=== PATIENT | male | born 1955 | race Caucasian/White ===

== ENCOUNTER 2017-08-11 09:55 | Day surgery (SDC) | payer BC ==
[2017-08-11] MEDS ORDERED: Sodium Chloride 0.9% 10 ML Syringe FLUSH PRN (10:00)
[2017-08-11] MEDS ORDERED: Lactated Ringers 1,000 ML IV SCH (10:00)
[2017-08-11] MEDS ORDERED: fentaNYL 100 MCG/2 ML SDV ONE ×2 (10:43→11:46)
[2017-08-11] MEDS ORDERED: Midazolam 1 MG/ML 2 ML SDV ONE ×2 (10:43→11:46)
[2017-08-11] MEDS ORDERED: Propofol 200 MG/20 ML SDV ONE ×2 (10:44→11:46)
[2017-08-11] MEDS ORDERED: 50% Dextrose in Water 50 ML Syringe IVPUSH ONE (11:23)
--- NOTE | 2017-08-11 11:40 | PCM.PN ---
- General Info Date of Service: 08/11/17 - Review of Systems Systems Review Comment:: 62-year-old male referred by Jarad Pace for EGD and colonoscopy. His recent history and physical is reviewed and there is no significant changes noted from that time. He is medically stable to proceed with monitored anesthesia. I have discussed the proposed procedures with the patient. He understands indications options and risks and agrees to proceed. - Patient Data Vitals - Most Recent: Last Vital Signs Temp 98.0 F 08/11/17 11:11 Pulse 70 08/11/17 11:11 Resp 18 08/11/17 11:11 BP 127/52 L 08/11/17 11:11 Pulse Ox 95 08/11/17 11:11 Weight - Most Recent: 108.862 kg Lab Results Last 24 Hours: Laboratory Results - last 24 hr 08/11/17 Range/Units 11:20 POC Glucose 38 L* (65-110) mg/dl Med Orders - Current: Current Medications Lactated Ringer's (Ringers, Lactated) 1,000 mls @ 70 mls/hr IV ASDIRECTED SHIVAM Last Admin: 08/11/17 11:32 Dose: 70 mls/hr Sodium Chloride (Saline Flush) 10 ml FLUSH ASDIRECTED PRN PRN Reason: Keep Vein Open Discontinued Medications Dextrose/Water (Dextrose 50% In Water) 25 ml IVPUSH ONETIME ONE Stop: 08/11/17 11:24 Last Admin: 08/11/17 11:32 Dose: 25 ml Fentanyl (Sublimaze) Confirm Administered Dose 100 mcg .ROUTE .STK-MED ONE Stop: 08/11/17 10:44 Midazolam HCl (Versed 1 Mg/Ml) Confirm Administered Dose 2 mg .ROUTE .STK-MED ONE Stop: 08/11/17 10:44 Propofol (Diprivan 20 Ml) Confirm Administered Dose 400 mg .ROUTE .STK-MED ONE Stop: 08/11/17 10:45 - Problem List Review Problem List Initiated/Reviewed/Updated: Yes - Assessment Assessment:: GERD History of colon polyps - Plan Plan:: EGD and colonoscopy
[2017-08-11] MEDS ORDERED: Lidocaine 2% 5 ML SDV ONE (11:46)
--- NOTE | 2017-08-11 12:47 | PCM.OPNOTE ---
- General Post-Op/Procedure Note Date of Surgery/Procedure: 08/11/17 Operative Procedure(s): EGD with biopsy and colonoscopy Findings: Mild inflammation at the GE junction Small gastric polyps Moderate sigmoid diverticulosis Pre Op Diagnosis: GERD. History of colon polyps Post-Op Diagnosis: Reflux esophagitis. Gastric polyps. Diverticulosis of the colon Anesthesia Technique: MAC Primary Surgeon: Aravind Luna Pathology: Biopsies of gastric antrum Biopsies of gastric polyps Biopsies of GE junction Output, Urine Amount: 0 EBL in mLs: 3 Complications: None Condition: Good Free Text/Narrative:: Intake & Output 08/10/17 08/11/17 08/11/17 22:59 06:59 14:59 Intake Total 700 Balance 700
--- NOTE | 2017-08-11 13:17 | OR ---
Date of Procedure: 08/11/2017 PREOPERATIVE DIAGNOSES: Gastroesophageal reflux disease, history of colon polyps. POSTOPERATIVE DIAGNOSES: Reflux esophagitis, gastric polyps, sigmoid diverticulosis. OPERATION PERFORMED: Esophagogastroduodenoscopy with biopsy and colonoscopy. INDICATIONS FOR SURGERY: This 62-year-old male has a history of GERD symptoms. He also has a history of colon polyps and comes for surveillance colonoscopy. FINDINGS: On upper endoscopy, the patient has a mild degree of inflammation at the GE junction with slight irregularity of the Z-line. This was 40 cm from the incisors. The remainder of the esophagus appears normal. The patient's stomach appears normal with the exception of a few small scattered benign-appearing polyps. No ulcers or other inflammation seen. The duodenum also appears normal. On colonoscopy, the patient has a [id number] degree of diverticulosis, but the remainder of the colon appears normal. No polyps were seen. DESCRIPTION OF PROCEDURE: The patient was taken to the operating room. He was given intravenous sedation and his throat was topically anesthetized. The esophagus was intubated with the Olympus gastroscope. This was carefully advanced down through the esophagus, stomach, and into the duodenum where examination was carried out to the 3rd portion. After carefully examining the duodenum, the scope was withdrawn back into the stomach. Biopsies of the antrum were taken to rule out H. pylori. Full examination of the stomach including retroflexed examination of the fundus was performed. Multiple small polyps were biopsied to assure that they were benign. The GE junction was then carefully examined and biopsies were taken here as well. The esophagus was then re- examined as the scope was withdrawn. Attention was turned to colonoscopy. Digital rectal exam was performed, showing no rectal masses. The Olympus colonoscope was inserted into the rectum. Retroflexed examination of the rectal canal was performed. The scope was then carefully advanced under direct visualization through the entire length of the colon until the cecum was reached. Cecal acquisition was confirmed by noting the normal internal cecal anatomy including the appendiceal orifice and ileocecal valve. The light was also noted to transilluminate the abdominal wall in the right lower quadrant. After examining the cecum, the scope was slowly withdrawn sequentially re- examining the colonic segments until the entire colon and rectum had been fully examined. The scope was removed and the patient was taken from the operating room in satisfactory condition. ESTIMATED BLOOD LOSS: 3 mL. COMPLICATIONS: None. PROGNOSIS: Good. LOBO Luna MD /[id number]
== END 2017-08-11 14:42 | disposition home or self-care (01) ==
LOC: LL.SDS 09:55
PROVIDERS: ATTEND Surgery
DX: Z12.11 Encounter for screening for malignant neoplasm of colon (principal); K21.0 Gastro-esophageal reflux disease with esophagitis; K57.30 Diverticulosis of large intestine without perforation or abscess without bleeding; K31.7 Polyp of stomach and duodenum; I11.0 Hypertensive heart disease with heart failure; I50.22 Chronic systolic (congestive) heart failure; I25.10 Atherosclerotic heart disease of native coronary artery without angina pectoris; E11.9 Type 2 diabetes mellitus without complications; Z95.1 Presence of aortocoronary bypass graft; Z86.010 Personal history of colon polyps; Z79.4 Long term (current) use of insulin; Z79.899 Other long term (current) drug therapy; Z98.890 Other specified postprocedural states; Z88.8 Allergy status to other drugs, medicaments and biological substances
CPT/HCPCS: 43239; 45378; 82962; J2250; J2704; J3010; J7120; J7060

== ENCOUNTER 2018-11-18 13:05 | Emergency (ER) | payer BC ==
--- NOTE | 2018-11-18 14:24 | EDM.PDOC ---
ED HPI GENERAL MEDICAL PROBLEM - General Chief Complaint: General Stated Complaint: Abnormal labs Time Seen by Provider: 11/18/18 13:18 Source of Information: Reports: Patient History Limitations: Reports: No Limitations - History of Present Illness INITIAL COMMENTS - FREE TEXT/NARRATIVE: Patient referred to the ER by [facility] () to get BUN/Cr recheck due to previously high lab result obtained by [facility] provider. Results high and reported to Nephrology today. Patient presented self to ER but is not happy to have to come here. 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 Patient reports slowly dwindling renal function over the past several years, likely due to hyperglycemia/IDDM. - Related Data Allergies Allergy/AdvReac Type Severity Reaction Status Date / Time atorvastatin calcium Allergy Muscle Verified 11/18/18 13:52 [From Lipitor] Weakness rosuvastatin calcium Allergy Muscle Verified 11/18/18 13:52 [From Crestor] Weakness simvastatin [From Zocor] Allergy UNKNOWN Verified 11/18/18 13:52 Home Meds: Home Meds Acetaminophen 650 mg PO Q4HR PRN MDD 4,000 mg in 24 hours 08/11/17 [History] Aspirin/Calcium Carbonate/Mag [Aspirin Buffered] 325 mg PO DAILY 08/11/17 [ History] Carvedilol 25 mg PO BID 08/11/17 [History] Cholecalciferol (Vitamin D3) [Vitamin D3] 800 unit PO DAILY 08/11/17 [History] Clopidogrel Bisulfate [Clopidogrel] 75 mg PO DAILY 08/11/17 [History] Fenofibrate Nanocrystallized [Fenofibrate] 145 mg PO DAILY 08/11/17 [History] Finasteride 5 mg PO DAILY 08/11/17 [History] Fish Oil/Matthews-3 Fatty Acids [Fish Oil 1,000 MG] 1 gm PO DAILY 08/11/17 [History ] Insulin Aspart [NovoLOG] 2 unit SUBCUT ASDIRECTED PRN 08/11/17 [History] Insulin Glarg,Human.Rec.Analog [Lantus Solostar] 51 unit SUBCUT BID 08/11/17 [ History] Insuln Asp Prot/Insulin Aspart [NovoLOG Mix 70-30] 30 unit SUBCUT BIDMEALS 08/11 [History] Isosorbide Mononitrate [Isosorbide Mononitrate ER] 120 mg PO DAILY 08/11/17 [ History] Multivitamins [Tab-A-Arely] 1 tab PO DAILY 08/11/17 [History] Niacin [Niacin ER] 500 mg PO BEDTIME 08/11/17 [History] Nitroglycerin [Nitrostat] 0.4 mg SL ASDIRECTED PRN 08/11/17 [History] Omeprazole 20 mg PO DAILY 08/11/17 [History] Sacubitril/Valsartan [Entresto 97 mg-103 mg Tablet] 1 tab PO BID 08/11/17 [ History] Tamsulosin [Flomax] 0.4 mg PO DAILY 08/11/17 [History] amLODIPine [Norvasc] 5 mg PO DAILY 08/11/17 [History] Pravastatin Sodium 20 mg PO BEDTIME 11/18/18 [History] Ubidecarenone [Co Q-10] 100 mg PO DAILY #30 capsule 11/18/18 [Rx] Past Medical History HEENT History: Reports: Cataract, Impaired Vision Other HEENT History: wears glasses Cardiovascular History: Reports: Bypass, High Cholesterol, Hypertension, Pacemaker, Stents Respiratory History: Reports: COPD Gastrointestinal History: Reports: Colon Polyp, GERD Genitourinary History: Reports: None Musculoskeletal History: Reports: Arthritis, Fracture, Gout Neurological History: Reports: None Psychiatric History: Reports: None Endocrine/Metabolic History: Reports: IDDM, Obesity/BMI 30+ Hematologic History: Reports: None Immunologic History: Reports: None Oncologic (Cancer) History: Reports: None Dermatologic History: Reports: None - Past Surgical History HEENT Surgical History: Reports: Oral Surgery Other HEENT Surgeries/Procedures: wisdom teeth removal GI Surgical History: Reports: Colonoscopy, EGD, Polypectomy Musculoskeletal Surgical History: Reports: Arthroscopic Knee, Knee Replacement Social & Family History - Caffeine Use Caffeine Use: Reports: Coffee - Living Situation & Occupation Living situation: Reports: Single Occupation: Employed ED ROS GENERAL - Review of Systems Review Of Systems: ROS reveals no pertinent complaints other than HPI. ED EXAM, GENERAL - Physical Exam Exam: See Below Exam Limited By: No Limitations General Appearance: Alert, WD/WN, No Apparent Distress, Obese Eye Exam: Bilateral Eye: EOMI, PERRL Ears: Hearing Grossly Normal Nose: No: Nasal Deformity, Nasal Swelling, Nasal Drainage Throat/Mouth: Normal Lips, Normal Voice, No Airway Compromise Head: Atraumatic, Normocephalic Neck: Supple Respiratory/Chest: No Respiratory Distress, Lungs Clear, Normal Breath Sounds, No Accessory Muscle Use Cardiovascular: Regular Rate, Rhythm, No Murmur GI/Abdominal: Soft, Non-Tender Extremities: Normal Inspection, Normal Capillary Refill Neurological: Alert, Oriented, Normal Cognition, Normal Gait Psychiatric: Normal Affect, Normal Mood Skin Exam: Warm, Dry, Intact, Normal Color Course - Vital Signs Last Recorded V/S: Last Vital Signs Temp 36.8 C 11/18/18 13:15 Pulse 61 11/18/18 13:15 Resp 20 11/18/18 13:15 BP 126/66 11/18/18 13:15 Pulse Ox 96 11/18/18 13:15 - Orders/Labs/Meds Labs: Laboratory Tests 11/18/18 11/18/18 Range/Units 13:38 13:38 WBC 6.1 (4.0-10.2) K/uL RBC 3.47 L (4.33-5.41) M/uL Hgb 10.1 L D (13.1-16.8) g/dL Hct 31.3 L (39.0-49.0) % MCV 90.2 D (84.0-98.0) fL MCH 29.1 (28.2-33.3) pg MCHC 32.3 (31.7-36.0) g/dL RDW 18.1 H (11.2-14.1) % Plt Count 270 (150-350) K/uL Neut % (Auto) 66.0 (45.0-80.0) % Lymph % (Auto) 16.5 (10.0-50.0) % [place] % (Auto) 10.6 (2.0-14.0) % Eos % (Auto) 6.1 H (0.0-5.0) % Baso % (Auto) 0.8 (0.0-2.0) % Neut # (Auto) 3.99 (1.40-7.00) K/uL Lymph # (Auto) 1.00 (0.50-3.50) K/uL [place] # (Auto) 0.64 (0.00-1.00) K/uL Eos # (Auto) 0.37 (0.00-0.50) K/uL Baso # (Auto) 0.05 (0.00-0.20) K/uL Sodium 142 (136-145) mmol/L Potassium 5.3 H (3.5-5.1) mmol/L Chloride 110 H (98-107) mmol/L Carbon Dioxide 21.4 (21.0-32.0) mmol/L BUN 49 H D (7-18) mg/dL Creatinine 1.93 H (0.51-1.17) mg/dL Est Cr Clr Drug Dosing 32.38 mL/min Estimated GFR (MDRD) 35 mL/min Glucose 63 L (74-106) mg/dL Calcium 9.0 (8.5-10.1) mg/dL Magnesium 2.2 (1.8-2.4) mg/dL Total Bilirubin 0.5 (0.2-1.0) mg/dL AST 20 (15-37) U/L ALT 21 (12-78) U/L Alkaline Phosphatase 38 L (46-116) IU/L NT-Pro-B Natriuret Pep 2674 H (0-125) pg/mL Total Protein 7.5 (6.4-8.2) g/dL Albumin 3.6 (3.4-5.0) g/dL - Re-Assessments/Exams Free Text/Narrative Re-Assessment/Exam: Labs checked as requested. CBC showed Hgb 10.1 Suspect anemia of chronic disease. Chem showed K 5.3 Bun 49 Cr 1.93 ProBNP 2674 Glu 63. Patient given granola bar. He denied symptoms suggestive of hypoglycemia. Results called to . He was pleased with today's renal labs. Recommended low potassium diet. Handout on high/low potassium foods given to patient. He also wished for the patient to make an appointment to follow up at the Nephrology clinic in 2-3 weeks. Patient agreeable with this plan. He also has a follow up with Cardiology in two days (tuesday) and will arrange the Nephrology appointment at that time when he is at [facility]. Departure - Departure Time of Disposition: 14:20 Disposition: Home, Self-Care 01 Condition: Good Clinical Impression: Hyperkalemia Chronic kidney disease Qualifiers: Chronic kidney disease stage: unspecified stage Qualified Code(s): N18.9 - Chronic kidney disease, unspecified - Discharge Information *PRESCRIPTION DRUG MONITORING PROGRAM REVIEWED*: Not Applicable *COPY OF PRESCRIPTION DRUG MONITORING REPORT IN PATIENT ALLAN: Not Applicable Prescriptions: Ubidecarenone [Co Q-10] 100 mg PO DAILY #30 capsule Instructions: Hyperkalemia Referrals: Jarad Jensen PA [Primary Care Provider] - Forms: ED Department Discharge Additional Instructions: Follow a low potassium diet. Try to keep your blood sugars as regulated as possible. High blood sugars cause kidney damage. Make an appointment on Tuesday to see Nephrology in 2-3 weeks. Follow up as needed if you have any problems. Avoid taking any NSAIDs such as aspirin, Aleve, and Motrin
== END 2018-11-18 14:40 | disposition home or self-care (01) ==
LOC: LL.ED 13:05
DX: E87.5 Hyperkalemia (principal); I12.9 Hypertensive chronic kidney disease with stage 1 through stage 4 chronic kidney disease, or unspecified chronic kidney disease; E11.22 Type 2 diabetes mellitus with diabetic chronic kidney disease; N18.9 Chronic kidney disease, unspecified; Z88.8 Allergy status to other drugs, medicaments and biological substances; Z79.82 Long term (current) use of aspirin; Z79.4 Long term (current) use of insulin; Z79.899 Other long term (current) drug therapy
CPT/HCPCS: 36415; 80053; 83735; 83880; 85025; 99283